=== PATIENT | female | born 1995 | race Caucasian/White ===

== ENCOUNTER 2019-06-28 18:31 | Emergency (ER) | payer OTHER ==
[~2019-06-28] VITALS: Ht 160 cm; Wt 62.1 kg
[2019-06-28] MEDS ORDERED: ASPIRIN325 MG (18:50)
== END 2019-06-28 19:22 | disposition home or self-care (01) ==
LOC: ER 18:31
DX: S60.412A Abrasion of right middle finger, initial encounter (principal); W23.0XXA Caught, crushed, jammed, or pinched between moving objects, initial encounter; Y93.89 Activity, other specified; Y92.098 Other place in other non-institutional residence as the place of occurrence of the external cause; Y99.8 Other external cause status

== ENCOUNTER 2023-02-20 14:55 | Emergency (ER) | payer OTHER ==
[~2023-02-20] VITALS: Ht 160 cm; Wt 72.6 kg
[~2023-02-20 14:55] MED LIST: ASPIRIN325 MG
[2023-02-20] MEDS ORDERED: VYVANSE30 MG (15:05)
== END 2023-02-20 19:58 | disposition home or self-care (01) ==
LOC: ER 14:55
DX: J06.9 Acute upper respiratory infection, unspecified (principal); Z20.822 Contact with and (suspected) exposure to COVID-19

== ENCOUNTER 2023-03-13 09:43 | Emergency (ER) | payer OTHER ==
[~2023-03-13] VITALS: Ht 160 cm; Wt 72.6 kg
[~2023-03-13 09:43] MED LIST changes: +VYVANSE30 MG
[2023-03-13] MEDS ORDERED: MEDROLPACK PO (13:21)
[2023-03-13] MEDS ORDERED: BENADRYL ALLERG25 MG PO (13:21)
== END 2023-03-13 13:25 | disposition home or self-care (01) ==
LOC: ER 09:43
DX: R21 Rash and other nonspecific skin eruption (principal); Z85.89 Personal history of malignant neoplasm of other organs and systems